=== PATIENT | male | born 1960 | race Caucasian/White ===

== ENCOUNTER → 2018-08-04 | Day surgery (SDC) | payer BC ==
[~2018-08-04] MED LIST: ASPI81TA50 PO; CINN1CAP2 PO; CYAN25008 PO; GLIP5TAB10 PO; GLYCOPYRROLATE 1 MG/5 ML VIAL. ONE; IV RINGERS,LACTATED 1000ML 1,000 ML IV ONE; LIDOCAINE 2% PF 5 ML VIAL. ONE; LIRA0.6P2 SQ; METF10007 PO; MULT1TAB52 PO; OMEP40CA5 PO; PROPOFOL 40 ML IV ONE
[2018-08-04 08:52] VITALS: BP 127/82
--- NOTE | 2018-08-05 17:13 | PATHOLOGY ---
[facility] Accession Number: [id number] . 01 Material submitted: . PART A: RANDOM GASTRIC BIOPSY PART B: GASTRIC POLYP BIOPSY PART C: BIOPSY GE JUNCTION PART D: BIOPSY DISTAL ESOPHAGUS PART E: BIOPSY PROXIMAL ESOPHAGUS . 01 Clinical history: . Pre-OP DX: Hx Balderas's Post-OP DX: Gastric erosion and gastric polyp, hiatal hernia . 02 Diagnosis: A. Random gastric biopsy: - Mild superficial chronic gastritis, with focal mucosal erosion and acute inflammation. . B. Gastric biopsy, gastric polyp: - Fundic gland polyp. . C. Gastroesophageal junction biopsy: - Segment of gastric mucosa showing slight chronic inflammation. . D. Esophageal biopsy, distal esophagus: - Segments of mildly hyperplastic squamous esophageal mucosa. . E. Esophageal biopsy, proximal esophagus: - Segment of mildly hyperplastic squamous esophageal mucosa. (JPM:deja; 08/05/2018) QMS/08/05/2018 . 02 Comment: Sections of the random gastric biopsy reveal segments of gastric body and antral/body transition mucosa showing congestion and mild chronic inflammation with a single focus of mucosal erosion and acute inflammation. A properly controlled immunoperoxidase stain for Helicobacter is negative for Helicobacter organisms. . Sections of the gastric polyp biopsy reveal a segment of gastric body mucosa showing focal cystic dilatation of fundic glands consistent with fundic gland polyp. There are no adenomatous changes or evidence of malignancy. . Sections of the gastroesophageal junction biopsy reveal a segment of gastric mucosa showing slight chronic inflammation. There is no squamous esophageal mucosa. . Sections of the distal esophageal biopsy reveal segments of tangentially oriented mildly hyperplastic squamous esophageal mucosa. The findings are consistent with reflux. There is no evidence of an eosinophilic esophagitis. . Sections of the proximal esophageal biopsy reveal a tangentially oriented segment of mildly hyperplastic squamous esophageal mucosa. There is no evidence of ectopic gastric mucosa. There is no evidence of an eosinophilic esophagitis. (JPM:deja; 08/05/2018) . . Special stain performed: Immunoperoxidase stain for Helicobacter on A1. . 02 Electronically signed: . Roderick Moreira MD, Pathologist NPI- [id number] . 01 Gross description: . A. Received in formalin labeled "Artur Pickard, random gastric BX, rule out H. pylori," are 4 segments of simpson soft tissue measuring 1.5 x 0.8 x 0.2 cm in aggregate dimensions and ranging from 0.3 to 0.6 cm in maximum dimension. The specimen is submitted entirely in cassette A1. . B. Received in formalin labeled "Artur Pickard, gastric polyp BX," is a single segment of simpson soft tissue measuring 0.3 cm in maximum dimension. The specimen is entirely submitted in cassette B1. . C. Received in formalin labeled "Artur Pickard, BX GE junction," is a single segment of simpson soft tissue measuring 0.4 cm in maximum dimension. The specimen is entirely submitted in cassette C1. . D. Received in formalin labeled "Pickard, Artur, BX distal esophagus," are 2 segments of simpson soft tissue measuring 0.3 x 0.1 x 0.1 cm in aggregate dimensions and ranging from 0.1 to 0.2 cm in maximum dimension. The specimen is submitted entirely in cassette D1. . E. Received in formalin labeled "Artur Pickard, BX proximal esophagus," is a single segment of simpson soft tissue measuring 0.4 cm in maximum dimension. The specimen is entirely submitted in cassette E1. (TSD; 08/04/2018) TOB/TOB . 02 Pathologist provided ICD-10: K29.30, K31.7, K20.8 . 02 CPT . 225355, 106489, 138660, 667225, [id number] Specimen Comment: A courtesy copy of this report has been sent to Specimen Comment: [phone], . Specimen Comment: Report sent to / DR TOLEDO Specimen Comment: A duplicate report has been generated due to demographic updates. Performed at: [address], [place], [place] [id number] MD Henrik Mauricio MD Phone: [phone] Performed at: 02 [facility] [address] [place], [place] [id number] MD Roderick Moreira MD Phone: [phone]
== END | disposition home or self-care (01) ==
LOC: SURG 07:05
PROVIDERS: ATTEND Internal Medicine
DX: K31.7 Polyp of stomach and duodenum (principal); K21.0 Gastro-esophageal reflux disease with esophagitis; K29.30 Chronic superficial gastritis without bleeding; K44.9 Diaphragmatic hernia without obstruction or gangrene; K31.89 Other diseases of stomach and duodenum; E11.9 Type 2 diabetes mellitus without complications; Z88.2 Allergy status to sulfonamides; Z72.0 Tobacco use; Z79.84 Long term (current) use of oral hypoglycemic drugs; Z79.899 Other long term (current) drug therapy; Z79.82 Long term (current) use of aspirin
CPT/HCPCS: 43239; 88305; J2001; J2704; J3490